=== PATIENT | male | born 1970 | race Caucasian/White ===

== ENCOUNTER 2019-04-14 10:50 | Emergency (ER) | payer OTHER ==
[2019-04-14] MEDS ORDERED: Aspirin 81 mg CHEW TAB* 81 MG TAB.CHEW PO ONE (10:57)
[2019-04-14] MEDS ORDERED: Metoprolol Tartrate TAB* 25 MG PO ONE (10:57)
--- NOTE | 2019-04-14 11:04 | ED ---
Neurological HPI - HPI Summary HPI Summary: This pt is a 48 y/o male [facility]/o left arm numbness and tingling for the past 90 minutes. Pt describes left arm tingling radiating down to his fingers. Additionally pt notes he has nausea and states "I just feel off." Pt reports he was getting ready to go out for breakfast with his after they just had an appointment with the OB when his symptoms began. Pt's is currently 18 weeks . states patient began to have numbness and tingling right after she made a comment about work to which patient responded "don't put this pressure on me." Pt states when he does get stressed out he feels run down but has never had today's symptoms before. Denies headache, blurry vision, trouble ambulating or speaking, weakness in upper extremities, chest pain/pressure/heaviness, SOB, dizziness, lightheadedness. Pt denies any sick contacts at home. 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 He does not take any medications. Pt reports he has not seen a doctor in 10-15 years. Pt states drinking 1-2 glasses of wine daily. He notes he is a former smoker, quit in January 2019. Denies drug use. FHx: father with HTN. - History of Current Complaint Chief Complaint: EDNeurologicalDeficit Stated Complaint: LEFT ARM TINGLING/NAUSEAOUS PER PT Hx Obtained From: Patient Onset/Duration: Started minutes ago - 90 min, Still Present Timing: Constant Current Severity: Moderate Neurological Deficit Location: LUE Pain Intensity: 0 Pain Scale Used: 0-10 Numeric Character: Numbness/Tingling Aggravating: Nothing Alleviating: Nothing Associated Signs and Symptoms: Positive: Numbness, Nausea/Vomiting - POSITIVE: nausea. Negative: Unsteady Gait, Visual Changes, Headache, Weakness, Pain, Impaired Speech, Fever, Chest Pain, Shortness of Breath - Allergy/Home Medications Allergies/Adverse Reactions: Allergies Allergy/AdvReac Type Severity Reaction Status Date / Time No Known Allergies Allergy Verified 04/14/19 10:54 Home Medications: Home Medications Melatonin (NF) 1 tab PO BEDTIME PRN 04/14/19 [History Confirmed 04/14/19] Multivitamins/Minerals TAB* [Theragran/minerals TAB*] 1 tab PO DAILY 04/14/19 [ History Confirmed 04/14/19] Velvet Eros 200 mg PO DAILY 04/14/19 [History Confirmed 04/14/19] PMH/Surg Hx/FS Hx/Imm Hx Endocrine/Hematology History: Denies: Hx Diabetes Cardiovascular History: Denies: Hx Hypertension - Surgical History Surgical History: Yes Surgery Procedure, Year, and Place: R wrist surgery Infectious Disease History: No Infectious Disease History: Denies: Traveled Outside the [place] in Last 30 Days - Family History Known Family History: Positive: Hypertension - father - Social History Alcohol Use: Daily Alcohol Amount: 1-2 glasses of wine/day Substance Use Type: Reports: None Smoking Status (MU): Former Smoker Amount Used/How Often: quit in January 2019 Review of Systems Negative: Fever, Chills Negative: Blurred Vision, Erythema Negative: Sore Throat Negative: Chest Pain Negative: Shortness Of Breath, Cough Positive: Nausea. Negative: Abdominal Pain, Vomiting Negative: dysuria, hematuria Negative: Myalgia, Edema Negative: Rash Neurological: Other - NEGATIVE: dizziness, lightheadedness, difficulty walking or speaking Positive: Paresthesia, Numbness. Negative: Headache, Weakness All Other Systems Reviewed And Are Negative: Yes Physical Exam - Summary Physical Exam Summary: Constitutional: Well-developed, Well-nourished, Alert. (-) Distressed Skin: Warm, Dry HENT: Normocephalic; Atraumatic Eyes: Conjunctiva normal Neck: Musculoskeletal ROM normal neck. (-) JVD, (-) Stridor, (-) Tracheal deviation Cardio: Rhythm regular, rate normal, Heart sounds normal; Intact distal pulses; The pedal pulses are 2+ and symmetric. Radial pulses are 2+ and symmetric. (-) Murmur Pulmonary/Chest wall: Effort normal. (-) Respiratory distress. Diminished breath sounds. Abd: Soft, (-) tenderness, (-) Distension, (-) Guarding, (-) Rebound Musculoskeletal: (-) Edema Lymph: (-) Cervical adenopathy Neuro: Alert, Oriented x3 Psych: Mood and affect Normal Triage Information Reviewed: Yes Vital Signs On Initial Exam: Initial Vitals Temp Pulse Resp BP Pulse Ox 97.9 F 73 19 155/107 100 04/14/19 10:51 04/14/19 10:51 04/14/19 10:51 04/14/19 10:51 04/14/19 10:51 Vital Signs Reviewed: Yes Procedures - Sedation Patient Received Moderate/Deep Sedation with Procedure: No Diagnostics - Vital Signs Vital Signs Temp Pulse Resp BP Pulse Ox 04/14/19 10:51 97.9 F 73 19 155/107 100 - Laboratory Result Diagrams: 04/14/19 11:14 04/14/19 11:14 Lab Statement: Any lab studies that have been ordered have been reviewed, and results considered in the medical decision making process. - Radiology Chest XR Radiology Interpretation Completed By: Radiologist Summary of Radiographic Findings: IMPRESSION: No evidence for acute intrathoracic disease. Dr. Menendez has reviewed this report. - EKG 11:23 Cardiac Rate: Bradycardia - at 53 bpm EKG Rhythm: Sinus Bradycardia Summary of EKG Findings: EKG at 11:23 shows sinus bradycardia at a rate of 53 bpm. No STEMI. 1439 Cardiac Rate: NL - at 63 bpm EKG Rhythm: Sinus Rhythm Summary of EKG Findings: EKG at 1439 shows normal sinus rhythm at a rate of 63 bpm. No STEMI. Re-Evaluation - Re-Evaluation First Eval Re-Evaluation Time: 13:52 Change: Improved Comment: Pr reports feeling "pretty close" to normal. He notes tingling has resolved as well as the nausea. Although, he states he feels "loopy" like after taking a couple of shots of [place]. Course/Dx - Course Assessment/Plan: Pt is a 48 y/o male [facility]/o left arm numbness and tingling for the past 90 minutes. Pt describes left arm tingling radiating down to his fingers. Additionally pt notes he has nausea and states "I just feel off." reports pt began to have numbness and tingling after she made a comment about work to which patient responded with "don't put this pressure on me". Lab results are unremarkable except for hemoglobin of 12.3 and hematocrit of 37. Chest XR shows No evidence for acute intrathoracic disease. In the ED course the patient was given aspirin and Lopressor. HEART score is between 3 and 4 depending on cut off of quitting smoking and whether we will consider HTN to be taken as patient's past history as he has not seen a PCP in a while. I informed the patient and his of a between 2 and 15% chance of major adverse cardiac event within 30 days, based upon a heart score of 3 or 4. His symptoms did resolve completely today with blood pressure control. He has had baseline at the time of discharge. There is no evidence for myocardial infarction. I did recommend and offer did the patient have an inpatient stress test however he declined this. He understands the risks. I informed him to [facility] be seen in follow-up as soon as possible, also to have an outpatient stress test as soon as possible, outpatient cardiology follow-up also given. - Diagnoses Provider Diagnoses: Left arm numbness, Hypertension Discharge ED - Sign-Out/Discharge Documenting (check all that apply): Patient Departure - Discharge home - Discharge Plan Condition: Stable Disposition: HOME Prescriptions: Metoprolol Tartrate TAB* [Lopressor TAB*] 12.5 mg PO BID #28 tab Patient Education Materials: Paresthesia (ED), Hypertension (ED) Referrals: [facility] [Outside] (follow up within 48 hours) Fidencio Garcia MD [Medical Doctor] - (follow up within 48 hours.) Additional Instructions: Follow up with [facility] and Dr. Garcia, acetylene operator within 48 hours. You need an evaluation as soon as possible and set up a stress test as soon as possible. RETURN TO THE EMERGENCY DEPARTMENT FOR CHANGING OR WORSENING SYMPTOMS. - Attestation Statements Document Initiated by Scribe: Yes Documenting Scribe: Domitila Raza Provider For Whom Scribe is Documenting (Include Credential): Edmar Menendez MD Scribe Attestation: I, Domitila Raza, scribed for Edmar Menendez MD on 04/14/19 at [id number]. Status of Scribe Document: Ready
[2019-04-14 11:30] LABS: ABS Eosinophils 0.1 10^3/ul (0-0.6); ABS Lymphocytes 1.8 10^3/ul (1.0-4.8); ABS Monocytes 0.5 10^3/ul (0-0.8); ABS Neutrophils 2.2 10^3/ul (1.5-7.7); Eosinophil % 2.7 %; Hematocrit 37 % (42-52); Hemoglobin 12.3 g/dL (14.0-18.0); Lymphocyte % 37.8 %; Mean Corpuscular HGB Conc 33 g/dL (31-36); Mean Corpuscular Hemoglobin 26 pg (27-31); Mean Corpuscular Volume 79 fL (80-94); Mean Platelet Volume 7.7 fL (7.4-10.4); Nucleated Red Blood Cells % 0.1; Platelet Count 309 10^3/uL (150-450); Red Blood Count 4.71 10^6 /uL (4.18-5.48); Red Cell Distribution Width 15 % (10-15); White Blood Count 4.6 10^3/uL (3.5-10.8)
[2019-04-14 11:57] LABS: Albumin 4.4 g/dL (3.2-5.2); Albumin/Globulin Ratio 1.6 (1-3); BUN/Creatinine Ratio 21.8 (8-20); Calcium 9.2 mg/dL (8.6-10.3); EGFR African American 128.5 (>60); EGFR Non-African American 106.2 (>60); Globulin 2.7 g/dL (2-4); Potassium 4.2 mmol/L (3.5-5.0); Total Bilirubin 0.6 mg/dL (0.2-1.0); Total Protein 7.1 g/dL (6.4-8.9)
[2019-04-14 14:15] LABS: HDL Cholesterol 54.8 mg/dL
[2019-04-14 15:55] VITALS: BP 141/90
== END 2019-04-14 15:54 | disposition home or self-care (01) ==
LOC: ED 10:50
DX: R20.0 Anesthesia of skin (principal); I10 Essential (primary) hypertension; Z87.891 Personal history of nicotine dependence
CPT/HCPCS: 36415; 71045; 80053; 80061; 83036; 83605; 84484; 85025; 93005; 99283; A9270-GY